=== PATIENT | female | born 1965 | race Caucasian/White ===

== ENCOUNTER → 2016-09-07 | Outpatient (CLI) | payer BC ==
[~2016-09-07] MED LIST: DULO60CA44 PO; LEVO175T3 PO; MISCCAP80 PO
--- NOTE | 2016-09-07 12:25 | MAMMOGRAPHY REPORT ---
BILATERAL DIGITAL DIAGNOSTIC MAMMOGRAM TOMOSYNTHESIS WITH CAD AND TARGETED BILATERAL ULTRASOUND: 08/12 CLINICAL HISTORY: 51-year-old woman presents for bilateral mammography prior to mastopexy. Her phys ician felt lumps in the 11:00 right breast and 2:00 left breast, approximately 1 cm from the nipple. The patient is unable to feel the lumps herself. TECHNIQUE: Bilateral breast tomosynthesis in addition to standard 2D mammography was performed. Curr ent study was also evaluated with a Computer Aided Detection (CAD) system. COMPARISON: Comparison is made to exams dated: 11/26/2015 mammogram - [facility], 10/02/2014 mammogram, 08/25/2012 mammogram, and 09/04/2013 mammogram. BREAST COMPOSITION: The tissue of both breasts is almost entirely fatty. FINDINGS: There is a stable intramammary lymph node in the upper outer posterior left breast. No ne w suspicious mass, architectural distortion or cluster of microcalcifications is seen. Targeted ultrasound was performed in the 1:00 through 3:00 anterior left breast, and 10:00 through 1 2:00 anterior right breast, with particular attention to the areas of concern described by the [facility]. No suspicious solid or cystic mass is identified. IMPRESSION: ACR BI-RADS CATEGORY 2: BENIGN, TARGETED ULTRASOUND ACR BI-RADS CATEGORY 2: BENIGN Stable bilateral mammograms. There is no mammographic or targeted sonographic evidence of malignanc y. No suspicious mammographic or sonographic abnormality correlating with the palpable concerns in the 11:00 right breast or 2:00 left breast. Clinical follow-up is recommended and would also recomm end routine mammograms in one year. These results and recommendations were discussed with the [facility] at the time of the exam. Approximately 10% of breast cancers are not detected with mammography. A negative mammographic repor t should not delay biopsy if a clinically suggestive mass is present. Bailey Javed M.D. ay/:09/07/2016 09:15:24 Sisal Operator: Rossy GARCIA(Ryland)(Nick), [facility] letter sent: Normal 1/2 BI-RADS Code: ACR BI-RADS Category 2: Benign Ultrasound BI-RADS: ACR BI-RADS Category 2: Benign
== END | disposition home or self-care (01) ==
LOC: C.MAMM 08:41
PROVIDERS: ATTEND Surgery Plastic and Reconstructive Surgery
DX: N63 Unspecified lump in breast (principal)